=== PATIENT | female | born 1965 | race Caucasian/White ===

== ENCOUNTER 2020-05-13 14:22 | Emergency (ER) | payer BC, OTHER ==
[~2020-05-13] VITALS: Ht 162.6 cm; Wt 68.0 kg
[2020-05-13] MEDS ORDERED: ZOFRAN4 MG SL (14:53)
[2020-05-13] MEDS ORDERED: THERAFLU COLD1 EAC4 PO (14:53)
[2020-05-13] MEDS ORDERED: DECADRON6 MG PO (14:53)
--- NOTE | 2020-05-13 14:53 | Emergency Department Note ---
History of Present Illnes History of Present Illness Chief Complaint: COVID PUI History of Present Illness This is a 54 year old female c/o flu like symptoms for 3 days, co-worker has covid . 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 Any updates have been documented here. Past Medical History Recent Fever: Yes Clinical Suspicion of Infectio: Yes Past Medical History: None Social History Smoking Cessation: Unknown if ever smoked Any Illegal Drug Use: No TB Exposure/Symptoms: No Physically hurt or threatened: No Review of Systems Review of Systems Constitutional: Reports as per HPI, Reports chills, Reports fever, Reports malaise, Reports weakness EENTM: Reports no symptoms Cardiovascular: Reports no symptoms Respiratory: Reports chest congestion, Reports cough Gastrointestinal: Reports nausea, Reports vomiting Genitourinary: Reports no symptoms Musculoskeletal: Reports no symptoms Integumentary: Reports no symptoms Neurological: Reports headache Psychological: Reports no symptoms Endocrine: Reports no symptoms Hematological/Lymphatic: Reports no symptoms Physical Exam Related Data Allergies: Coded Allergies: Penicillins (Verified Allergy, Intermediate, hives/rash, 05/13/20) Physical Exam CONSTITUTIONAL Constitutional: Present well-developed, Present distressed HENT HENT: Present normocephalic, Present atraumatic, Present oropharynx clear/moist, Present nose normal HENT L/R: Present left ext ear normal, Present right ext ear normal EYES Eyes: Reports PERRL, Reports conjunctivae normal NECK Neck: Present ROM normal PULMONARY Pulmonary: Present effort normal, Present breath sounds normal CARDIOVASCULAR Cardiovascular: Present regular rhythm, Present heart sounds normal, Present capillary refill normal, Present normal rate GASTROINTESTINAL Abdominal: Present soft, Present nontender, Present bowel sounds normal GENITOURINARY Genitourinary: Present exam deferred SKIN Skin: Present warm, Present dry MUSCULOSKELETAL Musculoskeletal: Present ROM normal NEUROLOGICAL Neurological: Present alert, Present oriented x 3, Present no gross motor or sensory deficits PSYCHOLOGICAL Psychological: Present mood/affect normal, Present judgement normal Results Laboratory Lab results reviewed: Yes (covid pending) Assessment & Plan Medical Decision Making MDM clinically she has covid 19 and should ve tx as such Assessment & Plan Final Impression: (1) COVID-19 virus infection (2) Nausea & vomiting Depart Disposition: HOME, SELF-[facility] Meds Active Scripts Diphenhydra/Phenyleph/Acetamin (THERAFLU COLD AND COUGH POWDER) 1 Each Powd.pack, 1 PACKET PO Q6H PRN for fever and or pain, #12 Prov:LUIS E MCKINNEY MD 05/13/20 Ondansetron Hcl* (ZOFRAN*) 4 Mg Tablet, 4 MG SL Q6H PRN for NAUSEA, #14 MG 0 Refills Prov:LUIS E MCKINNEY MD 05/13/20 Dexamethasone (Decadron) 6 Mg Tablet, 1 TAB PO DAILY, #7 Prov:LUIS E MCKINNEY MD 05/13/20 Medications in the ED Ondansetron HCl 4 mg ONCE ONCE PO ; Start 05/13/20 at 15:00; Stop 05/13/20 at 15:01; Status UNV Acetaminophen 650 mg ONCE ONCE PO ; Start 05/13/20 at 15:00; Stop 05/13/20 at 15:01; Status UNV Physician Attestation Provider Attestation kylee good, pt can tolerate po well, safely d/c LUIS E MCKINNEY MD May 13, 2020 14:53
[2020-05-13] MEDS ORDERED: ACETAMINOPHEN 325 MG TAB PO ONE (15:00)
[2020-05-13] MEDS ORDERED: ONDANSETRON HCL 4 MG ORAL DISINTEGRATING TAB PO ONE (15:00)
[2020-05-13] MEDS ORDERED: ONDANSETRON HCL 4 MG ORAL DISINTEGRATING TAB ONE (15:05)
--- NOTE | 2020-05-14 10:53 | NUR ---
Informed of positive results by
== END 2020-05-13 15:15 | disposition home or self-care (01) ==
LOC: FSED 14:22
DX: U07.1 COVID-19 (principal); R05 Cough; R11.2 Nausea with vomiting, unspecified; F17.210 Nicotine dependence, cigarettes, uncomplicated
CPT/HCPCS: 87635; 99283; Q0162